=== PATIENT | female | born 1960 | race Hispanic/Latino ===

== ENCOUNTER 2017-12-08 12:36 | Emergency (ER) | payer OTHER ==
[~2017-12-08] VITALS: Ht 149.9 cm; Wt 61.2 kg
[2017-12-08] MEDS ORDERED: DONNATAL/LIDOCAINE/MAALOX 30 ML SUSP PO STA (13:10)
== END 2017-12-08 14:40 | disposition home or self-care (01) ==
LOC: FSED 12:36
DX: R10.13 Epigastric pain (principal); K21.9 Gastro-esophageal reflux disease without esophagitis
CPT/HCPCS: 80053; 81003; 81025; 84484; 85025; 99283